=== PATIENT | female | born 1965 | race Caucasian/White ===

== ENCOUNTER 2017-11-20 16:47 | Emergency (ER) | payer OTHER ==
[2017-11-20 19:27] LABS: ADD MAN DIFF? NO
[2017-11-20 19:34] LABS: BASOPHIL # 0.1 10^3/ul (0.0-0.1); EOSINOPHILS # 0.2 10^3/ul (0.0-0.5); EOSINOPHILS % 2.9 % (0.0-7.0); HEMATOCRIT 37.7 % (37.0-47.0); HEMOGLOBIN 12.4 g/dl (12.0-16.0); LYMPHOCYTES # 2.6 10^3/ul (0.8-2.9); LYMPHOCYTES % 41.2 % (15.0-51.0); MEAN CORPUSCULAR HGB CONC 32.9 g/dl (32.0-37.0); MEAN CORPUSCULAR VOLUME 82.1 fl (82.0-101.0); MEAN PLATELET VOLUME 11.2 fl (7.4-10.4); MONOCYTE # 0.6 10^3/ul (0.3-0.9); MONOCYTES % 9.1 % (0.0-11.0); NEUTROPHIL # 2.8 10^3/ul (1.6-7.5); NEUTROPHILS % 45.5 % (39.0-77.0); PLATELET COUNT 118 10^3/UL (140-415); RED BLOOD COUNT 4.59 10^6/ul (4.20-5.40)
[2017-11-20 19:34] LABS: WHITE BLOOD COUNT 6.2 10^3/ul (4.8-10.8)
[2017-11-20 19:48] LABS: ANION GAP 16 (8-16); BLOOD UREA NITROGEN 15 mg/dl (7-20); CALCIUM 8.8 mg/dl (8.4-10.2); CARBON DIOXIDE 28 mmol/L (21-31); CHLORIDE 107 mmol/L (97-110); CREATININE 1.12 mg/dl (0.44-1.00); GLUCOSE 92 mg/dl (70-220); POTASSIUM 4.3 mmol/L (3.5-5.1); SODIUM 147 mmol/L (135-144)
== END 2017-11-20 20:45 | disposition home or self-care (01) ==
LOC: FTE 16:47
DX: N93.9 Abnormal uterine and vaginal bleeding, unspecified (principal); R10.2 Pelvic and perineal pain
CPT/HCPCS: 36415; 76830; 76856; 80048; 81025; 84702; 85025; 99284-25